=== PATIENT | male | born 1945 | race Caucasian/White ===

== ENCOUNTER → 2016-08-08 | Outpatient (CLI) | payer BC ==
[~2016-08-08] MED LIST: DOS PO; FLAGYL500 MG PO; KONSYL PO; LEVAQUIN 5500 MG/TA1 PO; LIQUIFILM TEARS15 ML OU; MAXZIDE-25MG TA1 TAB PO; MULTIVITAMIN1 CTB PO; NORCO 325 MG-51 TAB PO; PHARMASSURE SA160 MG PO; PROBIOTICA100 Milli1 PO; PYRIDIUM 100MG100 MG PO; SENOKOT S 50 MG1 TAB PO; TIROSINT50 MC1 PO
== END ==
LOC: COL.RAD 08:00
PROVIDERS: Urology
DX: N40.0 Benign prostatic hyperplasia without lower urinary tract symptoms (principal); R93.3 Abnormal findings on diagnostic imaging of other parts of digestive tract; R97.20 Elevated prostate specific antigen [PSA]; Z87.440 Personal history of urinary (tract) infections; R10.2 Pelvic and perineal pain; N39.0 Urinary tract infection, site not specified

== ENCOUNTER 2016-09-13 08:41 | Day surgery (SDC) | payer BC ==
[~2016-09-13] VITALS: Ht 166.4 cm; Wt 70.6 kg
[2016-09-13] VITALS (10 sets, daily range): BP systolic 107–149; BP diastolic 50–78; PULSE 71–87; TEMP 97.4–98
[2016-09-13] MEDS ORDERED: DOS PO (09:09)
[2016-09-13] MEDS ORDERED: MULTIVITAMIN1 CTB PO (09:09)
[2016-09-13] MEDS ORDERED: KONSYL PO (09:09)
[2016-09-13] MEDS ORDERED: PHARMASSURE SA160 MG PO (09:10)
[2016-09-13] MEDS ORDERED: PROBIOTICA100 Milli1 PO (09:10)
[2016-09-13] MEDS ORDERED: TIROSINT50 MC1 PO (09:11)
[2016-09-13] MEDS ORDERED: MAXZIDE-25MG TA1 TAB PO (09:12)
[2016-09-13] MEDS ORDERED: NORCO 325 MG-51 TAB PO (12:44)
[2016-09-13] MEDS ORDERED: SENOKOT S 50 MG1 TAB PO (12:45)
[2016-09-13] MEDS ORDERED: PYRIDIUM 100MG100 MG PO (12:46)
== END 2016-09-13 15:46 | disposition home or self-care (01) ==
LOC: SDCO 08:41
DX: N30.80 Other cystitis without hematuria (principal); N32.9 Bladder disorder, unspecified; R30.0 Dysuria; R35.0 Frequency of micturition; R10.2 Pelvic and perineal pain; Z87.440 Personal history of urinary (tract) infections
CPT/HCPCS: J0690; J1100; J1885; J2405; J2704; J3010; J7120

== ENCOUNTER → 2016-10-16 | Outpatient (CLI) | payer BC | LOC: COL.RAD 07:14 | DX: K57.32 Diverticulitis of large intestine without perforation or abscess without bleeding (principal); N32.1 Vesicointestinal fistula; Z53.8 Procedure and treatment not carried out for other reasons ==

== ENCOUNTER → 2016-10-25 | Outpatient (CLI) | payer BC | LOC: COL.RAD 08:37 | DX: K57.32 Diverticulitis of large intestine without perforation or abscess without bleeding (principal); R93.3 Abnormal findings on diagnostic imaging of other parts of digestive tract; N32.1 Vesicointestinal fistula ==

== ENCOUNTER 2016-10-27 08:45 | Inpatient (IN) | payer BC, MEDICARE ==
[~2016-10-27] VITALS: Ht 167.6 cm; Wt 69.8 kg
[~2016-10-27 08:45] MED LIST changes: -FLAGYL500 MG PO; -LEVAQUIN 5500 MG/TA1 PO; -LIQUIFILM TEARS15 ML OU
[2016-11-22] VITALS (9 sets, daily range): BP systolic 114–153; BP diastolic 56–77; PULSE 85–98; TEMP 97–98
[2016-11-22] MEDS ORDERED: TIROSINT50 MC1 PO (09:54)
[2016-11-22] MEDS ORDERED: LIQUIFILM TEARS15 ML OU (21:28)
[2016-11-23] VITALS (7 sets, daily range): BP systolic 97–125; BP diastolic 52–70; PULSE 81–97; TEMP 98.2–99
[2016-11-23 07:07] LABS: HEMOGLOBIN 13.5 g/dl (13.5-18.0); MEAN CELL VOLUME 89 fl (80.0-100.0); MEAN CORPUSCULAR HEMOGLOBIN 30 pg (27.0-31.0); MEAN CORPUSCULAR HGB CONC 34 g/dl (33.0-37.0); MEAN PLATELET VOLUME 9.5 fl (7.4-10.4); PLATELET COUNT 241 K/mm3 (130-400); RED BLOOD COUNT 4.52 M/mm3 (4.20-5.60); REDCELL DISTRIBUTION WIDTH-CV 12.6 % (11.5-14.5)
[2016-11-23 07:16] LABS: CALCIUM 8.3 mg/dL (8.4-10.2); CREATININE, serum 1.14 mg/dL (0.66-1.25); POTASSIUM 3.2 mmol/L (3.4-5.0)
[2016-11-23 08:01] LABS: WHITE BLOOD COUNT 21.3 K/mm3 (4.8-10.8)
[2016-11-23 08:02] LABS: ADD PATHOLOGY DIFF REVIEW NO
[2016-11-23 10:44] LABS: BAND 21 % (0-10); NEUTROPHILS 71 % (42.0-75.2); PLATELET ESTIMATE NORMAL (NORMAL); TOTAL CELLS COUNTED 100
[2016-11-24] VITALS (7 sets, daily range): BP systolic 111–147; BP diastolic 56–79; PULSE 94–107; TEMP 97.9–99.1
[2016-11-24 08:05] LABS: BASO % 0.2 % (0.0-2.0); EOS % 0.2 % (0-4.0); GRAN # 13.8 (1.4-6.5); GRAN % 84.9 % (42.2-75.2); LYMPH # 1.1 (1.2-3.4); LYMPH % 6.9 % (20.0-51.0); MEAN CELL VOLUME 89 fl (80.0-100.0); MEAN CORPUSCULAR HEMOGLOBIN 30 pg (27.0-31.0); MEAN CORPUSCULAR HGB CONC 33 g/dl (33.0-37.0); MEAN PLATELET VOLUME 9.7 fl (7.4-10.4); MONO # 1.2 (0.1-0.6); MONO % 7.3 % (1.7-9.3); PLATELET COUNT 226 K/mm3 (130-400); RED BLOOD COUNT 4.06 M/mm3 (4.20-5.60); REDCELL DISTRIBUTION WIDTH-CV 12.9 % (11.5-14.5); WHITE BLOOD COUNT 16.2 K/mm3 (4.8-10.8)
[2016-11-24 08:25] LABS: CALCIUM 8.1 mg/dL (8.4-10.2); CREATININE, serum 0.94 mg/dL (0.66-1.25); POTASSIUM 3.1 mmol/L (3.4-5.0)
[2016-11-25 01:43] VITALS: BP 142/80; PULSE 94; TEMP 98
[2016-11-25 04:56] VITALS: BP 146/79; PULSE 96; TEMP 98.2
[2016-11-25 09:16] VITALS: BP 125/64; PULSE 105; TEMP 97.7
[2016-11-25 13:35] VITALS: BP 136/77; PULSE 99; TEMP 97.3
[2016-11-25] MEDS ORDERED: LEVAQUIN 5500 MG/TA1 PO (14:39)
[2016-11-25] MEDS ORDERED: FLAGYL500 MG PO (14:39)
== END 2016-11-25 16:26 | disposition home or self-care (01) | DRG 330 ==
LOC: INPTSU 11-22 09:01 → SURG 11-22 12:00
PROVIDERS: Surgery
PROC: 8E0W4CZ Robotic Assisted Procedure of Trunk Region, Percutaneous Endoscopic Approach (ICD-10-PCS; 2016-11-22)
PROC: 0DTN4ZZ Resection of Sigmoid Colon, Percutaneous Endoscopic Approach (ICD-10-PCS; principal; 2016-11-22 12:00)
PROC: 0DNN4ZZ Release Sigmoid Colon, Percutaneous Endoscopic Approach (ICD-10-PCS; 2016-11-22 12:00)
DX: K57.32 Diverticulitis of large intestine without perforation or abscess without bleeding (principal); N32.1 Vesicointestinal fistula; K66.0 Peritoneal adhesions (postprocedural) (postinfection)
CPT/HCPCS: A4315; A9284; J0330; J0690; J1100; J1170; J1650; J1885; J2405; J2704; J2710; J3010; J7120; Q9968